=== PATIENT | male | born 1980 | race Caucasian/White ===

== ENCOUNTER 2016-05-31 13:46 | Emergency (ER) | payer BC, MEDICAID ==
[~2016-05-31] VITALS: Ht 190.5 cm; Wt 138.5 kg
[~2016-05-31 13:46] MED LIST: IBUP800T23 PO; OMEP20TA39 PO
[2016-05-31 13:52] VITALS: BP 140/92; PULSE 68; RESP 18; TEMP 98; O2SAT 97
--- NOTE | 2016-05-31 14:08 | PD ---
HPI Chief Complaint: Cold / Flu Symptoms Time Seen by Provider: 14:04 Travel History International Travel<30 days: No Contact w/Intl Traveler<30days: No Traveled to known affect area: No History of Present Illness HPI Patient is a 35-year-old male presenting with ENT/URI symptoms for 2 weeks. He states that he had fever, sore throat, cough and nasal congestion which seemed to improve in the last 4 days. The cough has worsened. He has thick yellow sputum production and occasional dyspnea. Denies OLGUIN, orthopnea, chest pain, wheezing. No history of cardiopulmonary disease or tobacco use. 2 days ago Max temperature was 100.3 Fahrenheit. Occasional dry scratchy throat and hoarseness as well as nasal congestion and rhinorrhea. Denies any ear or eye symptoms. PFSH Past Medical History Arthritis: Yes (BL knees) Diminished Hearing: No GERD: Yes Ulcer: Yes (ESOPHAGEAL ULCER AGE 18) Past Surgical History Other Surgery: Yes (SKIN GRAFT TO RIGHT WRIST/HAND) Social History Alcohol Use: No Tobacco Use: No Substance Use: No Allergies-Medications (Allergen,Severity, Reaction): Coded Allergies: No Known Allergies (Verified , 05/31/16) Reported Meds & Prescriptions Reported Meds & Active Scripts Active Proair Hfa 8.5 GM Inh (Albuterol Sulfate) 90 Mcg/Act Aer 2 Puff INH Q4-6H PRN 108 mcg/actuation Medrol Dosepak (Methylprednisolone) 4 Mg Dspk 4 Mg PO DIRECTED Per Pharmacist direction Azithromycin 250 Mg Tab 250 Mg PO DIRECTED Take 2 tabs (500 mg) on day 1 then 1 tab daily x 4 days. Reported Omeprazole 40 Mg Cap 40 Mg PO DAILY Review of Systems Except as stated in HPI: all other systems reviewed are Neg Physical Exam Narrative GENERAL: Well-developed and well-nourished adult male in no acute distress. SKIN: Warm and dry. Good turgor without tenting. HEAD: Normocephalic and atraumatic. EYES: PERRL bilaterally, 5mm. EOMI bilaterally. No injection or icterus present. No proptosis. Lids without edema or erythema. ENT: Bilateral ear canals are non-edematous/non-erythematous without otorrhea. Bilateral TMs have intact landmarks and without distortion, perforation, air- fluid level or erythema. Nasal mucosa erythematous and edematous without discharge, septum intact and midline. Buccal mucosa pink and moist. Oropharynx has some mild erythema of the anterior tonsillar pilars without tonsillar hypertrophy, masses, swelling, asymmetry and exudates. Uvula midline and airway patent. NECK: Supple, no meningeal signs. Trachea midline, no JVD. No cervical or facial lymphadenopathy. CARDIOVASCULAR: Regular rate and rhythm without murmurs, rubs, clicks or gallops. Radial and posterior tibial pulses 2+ bilaterally. No pedal edema. RESPIRATORY: Intermittent end expiratory wheezing, mild. Possible crackles in the left midlung field. No distress or use of accessory muscles. Speaks in full sentences. No stridor, tripoding or drooling. MUSCULOSKELETAL: No gait disturbances. Patient freely moving all four extremities spontaneously. Extremities without clubbing, cyanosis, or edema. No obvious deformities. NEUROLOGIC: CN II-XII grossly intact. Awake and alert. Motor grossly within normal limits. Normal speech. PSYCHIATRIC: Appropriate mood and affect; insight and judgment normal. Data Data Last Documented VS Vital Signs Date Time Temp Pulse Resp B/P Pulse Ox O2 Delivery O2 Flow Rate FiO2 05/31/16 14:06 16 98 Room Air 05/31/16 13:52 98.0 68 140/92 Orders Chest, Pa & Lat (05/31/16 14:03) Methylprednisolone So Succ Inj (Solumedr (05/31/16 14:15) Albuterol-Ipratropium Neb (Duoneb Neb) (05/31/16 14:15) MDM Medical Decision Making Medical Screen Exam Complete: Yes Emergency Medical Condition: Yes Differential Diagnosis Acute bronchitis versus viral syndrome versus pneumonia Narrative Course Patient is a 35-year-old male with two-week history of ENT/URI symptoms. He had improvement of symptoms with acute worsening of the last 4 days. He has some wheezing and possible crackles. No increased work of breathing and oxygen saturation on room air is 97%. Patient was given DuoNeb and Solu-Medrol and ordered chest x-ray which showed a patchy area of airspace disease in the left lower lung field. Given history of worsening cough, fever and auscultation of crackles in this region this does represent a pneumonia. As the patient is afebrile, nontoxic and no evidence of respiratory distress or compromise we'll treat this as an outpatient with azithromycin. Also prescribed pro-air and Medrol Dosepak. Patient was instructed to follow-up with his PCP and return for any acute worsening of symptoms.See discharge paperwork for further instructions. The plan was discussed with the patient who acknowledged their understanding and agreement. Reinforced the follow-up with primary care is critically important. Patient instructed on emergent conditions that should prompt return to ED. Diagnosis Primary Impression: Left lower lobe pneumonia Qualified Code: J18.1 - Pneumonia of left lower lobe due to infectious organism Patient Instructions: Community Acquired Pneumonia (ED), General Instructions Departure Forms: Tests/Procedures, Work Release Enter return to work date: Jun 04, 2016 Additional Instructions: Take medication as prescribed OTC Mucinex as needed OTC Tylenol or Ibuprofen for fever and discomfort Drink lots of fluid to help clear mucous/drainage and stay hydrated Follow up with PCP in 2 days Return to the ED for any acute worsening of symptoms Med/Other Pt SpecificInfo: Prescription(s) given Scripts Albuterol 8.5 GM Inh (Proair Hfa 8.5 GM Inh)90 Mcg/Act Aer2 Puff INH Q4-6H PRN ( SHORTNESS OF BREATH) #1 INHALER 108 mcg/actuation Prov:Annalise Bhardwaj MD 05/31/16 Methylprednisolone Dosepak (Medrol Dosepak)4 Mg Dspk4 Mg PO DIRECTED #1 DSPK Per Pharmacist direction Prov:Annalise Bhardwaj MD 05/31/16 Azithromycin 250 Mg [id number] Mg PO DIRECTED #6 TAB Take 2 tabs (500 mg) on day 1 then 1 tab daily x 4 days. Prov:Annalise Bhardwaj MD 05/31/16 Disposition: 01 DISCHARGE HOME Condition: Stable Claude Mendez III May 31, 2016 14:08
[2016-05-31] MEDS ORDERED: OMEP40CA2 PO (14:11)
[2016-05-31] MEDS ORDERED: methylPREDNISolone SOD SUCC 125 MG/2 ML VIAL IM ONE (14:15)
[2016-05-31] MEDS: RESP: ALBUTEROL 2.5 MG/IPRATROPIUM 0.5 MG NEB (SCH) INH (14:15)
--- NOTE | 2016-05-31 15:08 | RADHPO ---
EXAM DATE/TIME: 05/31/2016 14:57 [facility] COMPARISON: No previous studies available for comparison. INDICATIONS : Cough and congestions for 3 weeks. MEDICAL HISTORY : None. SURGICAL HISTORY : None. ENCOUNTER: Initial ACUITY: 3 weeks PAIN SCORE: 0/10 LOCATION: Bilateral chest FINDINGS: AP views of the chest demonstrate a normal-sized cardiac silhouette. There is patchy airspace opacity in the left lower lung zone, likely in the inferior left upper lobe. No effusion or pneumothorax is visualized. The bones and soft tissues demonstrate no acute finding. CONCLUSION: Mild patchy airspace opacity in the left lower lung zone. This is consistent with an infectious proce ss given the history of cough. Consider followup chest x-ray to confirm resolution following appropri ate therapy. Claude Dave MD on May 31, 2016 at 15:05 Board Certified Radiologist. This report was verified electronically.
[2016-05-31] MEDS ORDERED: MEDR4PAK PO (15:10)
[2016-05-31] MEDS ORDERED: ALBUAER3 INH (15:10)
[2016-05-31] MEDS ORDERED: AZIT250T3 PO (15:10)
== END 2016-05-31 15:30 | disposition home or self-care (01) ==
LOC: PHEFT 13:46
DX: J18.9 Pneumonia, unspecified organism (principal)
CPT/HCPCS: 71020; 94640; 94664; 96372; 99283; J2930